=== PATIENT | female | born 1965 | race Caucasian/White ===

== ENCOUNTER → 2018-03-02 | Outpatient (CLI) | payer BC ==
--- NOTE | 2018-03-02 17:18 | PCVCIMAG ---
APPROVED REPORT Study performed: 03/02/2018 15:42:14 Exam: Stress Echocardiogram Indication: Chest pain , Dyspnea, ABN EKG Patient Location: Echo lab Stress Nurse: Yessenia Medina RN Status: routine Ht: 5 ft 5 in HR: 93 bpm BP: 120/86 mmHg Rhythm: NSR Procedure The patient underwent an Exercise Stress Test using the Osmani Protocol. Blood pressure, heart rate, and EKG were monitored. An Echocardiogram was performed by product support technician in four stages in quad fashion. At peak stress, four selected images were obtained and placed side by side with resting images for comparison. Stress Test Details Stress Test: Exercise stress testing was performed using a Osmani protocol. HR Resting HR: 93 bpmMax Heart Rate (APMHR): 169 bpm Max HR Achieved: 179 bpmTarget HR (85% APMHR): 143 bpm % of APMHR: 105 Recovery HR: 123 bpm HR response to stress: Normal HR response to stress BP Resting BP: 120/86 mmHg Max BP: 188/96 mmHg Recovery BP: 134/80 mmHg ECG Resting ECG: Sinus Rhythm Stress ECG: Sinus Rhythm ST Change: inferior T wave abnormality Arrhythmia: rare PVCs Recovery ECG: Sinus Rhythm Recovery ST Change: inferior ST changes Recovery Arrhythmia: None Clinical Reason for Termination: Maximal effort Stress Symptoms: Chest pain and dyspnea Exercise duration: 9 min 12 sec Highest Stage Achieved: Stage 4: 4.2 mph at 16% grade. Exercise capacity: 10.7 METs Overall Exercise Capacity for Age: Normal Angina Score: Non-Limiting Pre-Stress Echo The resting Echocardiogram showed normal left ventricular contractility with an estimated Ejection Fraction of about >55%. Normal wall motion in all segments on baseline images. Post-Stress Echo The stress Echocardiogram showed normal left ventricular contractility with an estimated Ejection Fraction of about 60-65%. The stress Echocardiogram demonstrated wall motion abnormality in the basal inferior wall. Clinical Chest pain and ECG changes inferiorly suggesting evidence for ischemia. Conclusion Clinical Response: Ischemic Exercise Capacity: Average Stress ECG Response: Ischemic Stress Echo Images: Ischemic Other Information Study Quality: Adequate
--- NOTE | 2018-03-02 22:30 | PCVCIMAG ---
EXAM: BILATERAL LOWER EXTREMITY ARTERIAL DUPLEX INDICATION: Peripheral Arterial Disease. Leg pain. FINDINGS: Right Leg: Satisfactory arterial waveforms throughout the common/profunda/superficial femoral, popliteal, anterior tibial, peroneal, and posterior tibial arteries. No flow limiting stenosis seen. Left Leg: Satisfactory arterial waveforms throughout the common/profunda/superficial femoral, popliteal, anterior tibial, peroneal, and posterior tibial arteries. No flow limiting stenosis seen. IMPRESSION: No flow limiting stenosis in the right lower extremity. No flow limiting stenosis in the left lower extremity. LOC:OFFICE
== END | disposition home or self-care (01) ==
LOC: PCVCIMAG 16:29
PROVIDERS: ATTEND Internal Medicine Cardiovascular Disease
DX: I73.9 Peripheral vascular disease, unspecified (principal); R07.89 Other chest pain; R06.02 Shortness of breath; R53.83 Other fatigue; F17.200 Nicotine dependence, unspecified, uncomplicated; M79.604 Pain in right leg; M79.605 Pain in left leg
CPT/HCPCS: 93325; 93351; 93925